=== PATIENT | male | born 1990 | race Caucasian/White ===

== ENCOUNTER 2018-02-07 15:55 | Emergency (ER) | payer OTHER ==
[~2018-02-07] VITALS: Ht 165.1 cm; Wt 61.2 kg
[2018-02-07] MEDS ORDERED: NOHOMEMEDICATIONS (16:06)
[2018-02-07] MEDS ORDERED: PROAIR HFA8.5 GM INH (17:24)
[2018-02-07] MEDS ORDERED: PREDNISONE 20 M20 M1 PO (17:24)
[2018-02-07] MEDS ORDERED: TESSALON PERLE100 MG PO (17:25)
[2018-02-07 17:33] VITALS: BP 116/68
== END 2018-02-07 17:33 | disposition home or self-care (01) ==
LOC: M.ERS 15:55
DX: J20.9 Acute bronchitis, unspecified (principal); F17.200 Nicotine dependence, unspecified, uncomplicated

== ENCOUNTER 2018-05-24 21:44 | Emergency (ER) | payer OTHER ==
[~2018-05-24] VITALS: Ht 165.1 cm; Wt 63.5 kg
[~2018-05-24 21:44] MED LIST: NOHOMEMEDICATIONS; PREDNISONE 20 M20 M1 PO; PROAIR HFA8.5 GM INH; TESSALON PERLE100 MG PO
[2018-05-24] MEDS ORDERED: PREDNISONE 10 M10 MG PO (22:30)
[2018-05-24] MEDS ORDERED: ALBUTEROL2.5 MG/31 INH (22:30)
[2018-05-24] MEDS ORDERED: TESSALON PERLE100 MG PO (22:30)
[2018-05-24 22:54] VITALS: BP 133/89
== END 2018-05-24 22:56 | disposition home or self-care (01) ==
LOC: M.ERS 21:44
DX: J20.9 Acute bronchitis, unspecified (principal)

== ENCOUNTER 2018-09-11 00:55 | Emergency (ER) | payer OTHER ==
[~2018-09-11] VITALS: Ht 175.3 cm; Wt 63.5 kg
[~2018-09-11 00:55] MED LIST changes: +ALBUTEROL2.5 MG/31 INH; +PREDNISONE 10 M10 MG PO
[2018-09-11 01:20] LABS: URINE BLOOD 3+ (Negative); URINE CLARITY CLEAR; URINE COLOR BROWN; URINE GLUCOSE-RANDOM NEGATIVE (Negative); URINE KETONES NEGATIVE (Negative); URINE LEUKOCYTES-REFLEX NEGATIVE (Negative); URINE NITRITE-REFLEX NEGATIVE (Negative); URINE PROTEIN TRACE (Negative); URINE SPECIFIC GRAVITY >= 1.030 (1.005-1.030); URINE UROBILINOGEN 0.2 E.U./dl (0.2-1.0)
[2018-09-11 01:22] LABS: ICTOTEST (BILI CONFIRMATORY) Negative (Negative); URINE BILIRUBIN 1+ (Negative)
[2018-09-11 01:26] LABS: CASTS None Seen /LPF (None Seen); CRYSTALS None Seen /LPF (None Seen); SQUAMOUS 0-3 Few /LPF (0-3); URINE RBC 3-10 Few /HPF (0-2); URINE WBC-REFLEX >25 Many /HPF (0-5)
[2018-09-11 01:27] LABS: ABSOLUTE BASOPHILS 0.1 thou/uL (0.0-0.2); ABSOLUTE EOSINOPHILS 0.4 thou/uL (0.0-0.7); ABSOLUTE LYMPHOCYTES 3.3 thou/uL (0.8-5.3); ABSOLUTE MONOCYTES 0.6 thou/uL (0.0-1.2); ABSOLUTE NEUTROPHILS 4.2 thou/uL (1.6-8.1); BASOPHILS 1.2 %; EOSINOPHILS 4.7 %; HEMATOCRIT 41.3 % (42.0-52.0); HEMOGLOBIN 13.6 gm/dL (14.0-18.0); LYMPHOCYTES 38.9 %; MCH 28.6 pg (26.0-34.0); MCHC 32.8 g/dL (28.0-37.0); MCV 87.1 fL (80.0-100.0); MONOCYTES 6.4 %; MPV 8.7 fl. (7.2-11.1); NUCLEATED RBCS 0 /100WBC; PLATELET COUNT* 375 thou/uL (150-400); POLYS 48.8 %; RBC 4.74 mil/uL (4.50-6.00); RDW-CV 14.5 % (10.5-14.5); WBC 8.6 thou/uL (4.0-11.0)
[2018-09-11 01:33] LABS: CALCIUM 9.1 mg/dL (8.5-10.1); CREATININE 1.2 mg/dL (0.6-1.3); POTASSIUM 3.7 mmol/L (3.5-5.1)
[2018-09-11] MEDS ORDERED: CIPROFLOXACIN500 M1 PO (03:24)
[2018-09-11 04:54] VITALS: BP 109/64
== END 2018-09-11 04:43 | disposition home or self-care (01) ==
LOC: M.ERS 00:55
PROVIDERS: Emergency Medicine
DX: N39.0 Urinary tract infection, site not specified (principal)

== ENCOUNTER 2018-12-17 20:48 | Emergency (ER) | payer OTHER ==
[~2018-12-17] VITALS: Ht 165.1 cm; Wt 63.5 kg
[~2018-12-17 20:48] MED LIST changes: +CIPROFLOXACIN500 M1 PO
[2018-12-17 20:57] VITALS: BP 123/70
[2018-12-17] MEDS ORDERED: ALBUTEROL2.5 MG/31 INH (21:20)
[2018-12-17] MEDS ORDERED: PREDNISONE50 MG PO (21:20)
== END 2018-12-17 21:30 | disposition home or self-care (01) ==
LOC: M.ERS 20:48
DX: R05 Cough (principal); R09.81 Nasal congestion; F17.210 Nicotine dependence, cigarettes, uncomplicated